=== PATIENT | female | born 1990 | race Caucasian/White ===

== ENCOUNTER 2016-12-07 09:27 | Emergency (ER) | payer OTHER ==
[2016-12-07 09:57] LABS: HCG UR QUAL NEGATIVE
--- NOTE | 2016-12-07 10:33 | ED Physician Documentation ---
PD HPI NVD - Stated complaint Stated Complaint: VOMITING/ANXIETY - Chief complaint Chief Complaint: General - History obtained from History obtained from: Patient - History of Present Illness Timing - onset: How many days ago (5) Timing - duration: Days (5) Timing - details: Gradual onset, Still present Associated symptoms: Loss of appetite Contributing factors: Other (stress of divorce in progress) Improved by: Laying still Worsened by: Eating Similar symptoms before: Has not had sx before Recently seen: Not recently seen - Additonal information Additional information: 26y/o female with 3 children is going through a divorce for the past 2 years and about 10 days ago she took a test which was faintly positive and she has repeated this with 2 more + tests and the next day she took tests and they were negative. She has subsequently developed nausea and vomiting and has anxiety. She is getting ready to go to [place] tomorrow to see friends and her divorce is in progress. Review of Systems Constitutional: denies: Fever, Chills Eyes: denies: Decreased vision Ears: denies: Ear pain Nose: denies: Congestion Throat: denies: Sore throat Cardiac: denies: Chest pain / pressure, Palpitations Respiratory: denies: Dyspnea, Cough GI: reports: Nausea, Vomiting. denies: Abdominal Pain : denies: Dysuria, Frequency PD PAST MEDICAL HISTORY - Past Medical History Past Medical History: No - Past Surgical History Past Surgical History: No - Present Medications Home Medications: Ambulatory Orders Medication Instructions Recorded Confirmed Lorazepam [Ativan] 1 mg PO Q6HR PRN #20 tablet 12/07/16 - Allergies Allergies/Adverse Reactions: Allergies Allergy/AdvReac Type Severity Reaction Status Date / Time No Known Drug Allergies Allergy Verified 12/07/16 09:33 - Social History Does the pt smoke?: No Smoking Status: Never smoker Does the pt drink ETOH?: Yes Does the pt have substance abuse?: No - Immunizations Immunizations are current?: Yes PD ED PE NORMAL - Vitals Vital signs reviewed: Yes (tachy and hypertensive) - General General: Alert and oriented X 3, Well developed/nourished - HEENT HEENT: Atraumatic, PERRL, EOMI - Neck Neck: Supple, no meningeal sign - Cardiac Cardiac: RRR, No murmur - Respiratory Respiratory: No respiratory distress, Clear bilaterally - Abdomen Abdomen: Soft, Non tender - Back Back: No CVA TTP, No spinal TTP - Derm Derm: Normal color, Warm and dry, No rash - Extremities Extremities: No deformity, No edema - Neuro Neuro: No motor deficit, No sensory deficit - Psych Psych: Normal mood, Normal affect Results - Vitals Vitals: Vital Signs - 24 hr 12/07/16 12/07/16 09:32 12:46 Temperature 36.0 C L Heart Rate 103 H 79 Respiratory 18 18 Rate Blood Pressure 148/91 H 117/79 O2 Saturation 100 100 Oxygen O2 Source Room air - Labs Labs: Laboratory Tests 12/07/16 12/07/16 12/07/16 09:45 09:45 10:45 HCG, Quant < 0.60 Urine Color YELLOW Urine Clarity CLEAR Urine pH 6.5 Ur Specific [place] 1.015 1.015 Urine Protein NEGATIVE Urine Glucose (UA) NEGATIVE Urine Ketones >=80 H Urine Occult Blood NEGATIVE Urine Nitrite NEGATIVE Urine Bilirubin NEGATIVE Urine Urobilinogen 0.2 (NORMAL) Ur Leukocyte Esterase NEGATIVE Ur Microscopic Review NOT INDICATED Urine Culture Comments NOT INDICATED Urine HCG, Qual NEGATIVE Procedures - IVC sono (time) 1030 Bedside IVC sono: IVC measures (cm) (1.34), IVC collapsed c insp (cm) (complete) , Dehydration (mild) PD MEDICAL DECISION MAKING - ED course Complexity details: reviewed results, re-evaluated patient, considered differential, d/w patient ED course: 26 y/o female with vomiting and ? of . She is not and is under stress. Departure - Departure Disposition: 01 Home, Self Care Clinical Impression: Anxiety as acute reaction to exceptional stress Condition: Stable Instructions: ED Stress React Follow-Up: Your, doctor [Other] Prescriptions: Lorazepam [Ativan] 1 mg PO Q6HR PRN #20 tablet PRN Reason: Anxiety Comments: Today in the Emergency Department your blood pressure was elevated. This can happen from the stress of the visit itself, from a current illness or circumstance or from uncontrolled hypertension. If you take blood pressure medications take your usual mediations, have your blood pressure re-checked in an appropriate setting and follow up any elevation with your primary care doctor.
[2016-12-07 11:23] LABS: BILIRUBIN,URINE NEGATIVE (NEGATIVE); PH,URINE 6.5 PH (5.0-7.5); UA CHARGE (STRIP ONLY) YES; UR CULTURE IF IND NOT INDICATED
[2016-12-07 13:14] VITALS: BP 119/78
== END 2016-12-07 13:13 | disposition home or self-care (01) ==
LOC: ED 09:27
DX: F41.1 Generalized anxiety disorder (principal); F43.0 Acute stress reaction; R11.2 Nausea with vomiting, unspecified; E86.0 Dehydration; R03.0 Elevated blood-pressure reading, without diagnosis of hypertension
CPT/HCPCS: 36415; 81001; 81003; 81025; 84702; 87086; 99283; 99284

== ENCOUNTER 2017-03-10 11:09 | Emergency (ER) | payer OTHER ==
[2017-03-10 11:50] LABS: BILIRUBIN,URINE NEGATIVE (NEGATIVE)
[2017-03-10 12:03] LABS: UA w/ MICROSCOPIC CHARGE YES
[2017-03-10 12:04] LABS: HCG UR QUAL NEGATIVE
[2017-03-10 12:05] LABS: UR CULTURE IF IND NOT INDICATED; WBC,URINE 0-3 /HPF (0-5)
[2017-03-10] MEDS ORDERED: SODIUM CHLORIDE 0.9% 1,000 ML IV ONE (13:00)
[2017-03-10] MEDS ORDERED: KETOROLAC 60 MG/2 ML VIAL IVP STA (13:00)
[2017-03-10] MEDS ORDERED: KETOROLAC 30 MG/ML VIAL ONE (13:18)
[2017-03-10 13:26] LABS: BASOPHILS # (AUTO) 0.1 10^3/uL (0.0-0.1); BASOPHILS % (AUTO) 0.8 %; EOSINOPHILS % (AUTO) 0.5 %; HCT - HEMATOCRIT 36.8 % (37.0-47.0); HGB - HEMOGLOBIN 12.3 g/dL (12.0-16.0); LYMPHOCYTES # (AUTO) 1.7 10^3/uL (1.5-3.5); LYMPHOCYTES % (AUTO) 25.2 %; MEAN CORPUSCULAR HEMOGLOBIN 30.8 pg (27.0-31.0); MEAN CORPUSCULAR HGB CONC 33.5 g/dL (32.0-36.0); MEAN CORPUSCULAR VOLUME 91.8 fL (81.0-99.0); MEAN PLATELET VOLUME 9.2 fL (7.9-10.8); MONOCYTES # (AUTO) 0.4 10^3/uL (0.0-1.0); MONOCYTES % (AUTO) 5.2 %; NEUTROPHILS # (AUTO) 4.6 10^3/uL (1.5-6.6); NEUTROPHILS % (AUTO) 68.3 %; RED BLOOD COUNT 4.01 10^6/uL (4.20-5.40); RED CELL DISTRIBUTION WIDTH 13.5 % (12.0-15.0); UNCORRECTED WHITE BLOOD COUNT 6.7 x10^3/uL; WHITE BLOOD COUNT 6.7 x10^3/uL (4.8-10.8)
--- NOTE | 2017-03-10 14:13 | CT Report ---
EXAM: CT ABDOMEN AND PELVIS EXAM DATE: 03/10/2017 01:48 PM. CLINICAL HISTORY: Right sided abd pain; hematuria. COMPARISONS: None. TECHNIQUE: Routine axial helical CT imaging was performed through the abdomen and pelvis without IV c ontrast. Reconstructions: Coronal and sagittal. In accordance with CT protocol optimization, one or more of the following dose reduction techniques w ere utilized for this exam: automated exposure control, adjustment of mA and/or KV based on patient s ize, or use of iterative reconstructive technique. FINDINGS: Lung Bases: Clear. Bilateral breast prosthesis partially seen. Right Kidney/Ureter: Minor hydronephrosis. A 3 x 5 mm stone is seen in close proximity to the posteri or margin of the proximal ureter. Mild urothelial thickening. No intrarenal calculus. Minimal perinep hric fat stranding. No perinephric fluid. Left Kidney/Ureter: No stones, hydronephrosis, or hydroureter. No focal renal lesion identified. Other Abdominal Organs: Unremarkable survey of the unenhanced liver, spleen, pancreas, and adrenal gl ands. Grossly unremarkable gallbladder without calcified gallstone. Peritoneal Cavity: Trace dependent pelvic free fluid. No dilated bowel. Appendix is not well depicted . Pelvic Organs: No apparent abnormality of the suboptimally distended bladder. Grossly unremarkable GY N organs Vasculature: No abdominal aortic aneurysm. Bones: No significant findings. IMPRESSION: 1. A 3 x 5 mm stone is in close proximity to the posterior proximal right ureter, uncertain if within or adjacent to the ureter. 2. Minor right hydronephrosis. 3. Mild right urothelial thickening, presumably inflammatory/infectious. No intrarenal calculus or pe rinephric fluid. [facility] Referring Provider Line: [phone] SITE ID: [id number]
--- NOTE | 2017-03-10 14:57 | ED Physician Documentation ---
PD HPI ABD PAIN - Stated complaint Stated Complaint: ABD PX - Chief complaint Chief Complaint: Abd Pain - History obtained from History obtained from: Patient - History of Present Illness Timing - onset: Last night Timing - details: Still present Quality: Sharp Location: Other (right sided) Radiation: Right flank Associated symptoms: Nausea. No: Fever, Vomiting Similar symptoms before: Diagnosis (History of kidney stones.) - Additional information Additional information: The patient is a 26-year-old female with history of kidney stones, who presents with right sided abdominal pain radiating to the right flank. She reports dull right-sided abdominal pain intermittently for the past 4 months, but she developed sharp severe pain last night, lasting for about 2 hours. It is now back to a dull pain again. She reports associated nausea, but denies vomiting. She denies fever or diarrhea, and denies dysuria. Her last menstrual period was 3 weeks ago. She has had no abdominal surgery. Review of Systems Constitutional: denies: Fever Nose: denies: Congestion Throat: denies: Sore throat Respiratory: denies: Dyspnea, Cough GI: reports: Abdominal Pain, Nausea. denies: Vomiting, Diarrhea : denies: Dysuria Skin: denies: Rash Musculoskeletal: reports: Back pain (right flank). denies: Extremity pain Neurologic: reports: Headache. denies: Focal weakness, Numbness PD PAST MEDICAL HISTORY - Past Medical History Past Medical History: Yes Endocrine/Autoimmune: None : Kidney stones - Past Surgical History Past Surgical History: Yes - Present Medications Home Medications: Ambulatory Orders Medication Instructions Recorded Confirmed Lorazepam [Ativan] 1 mg PO Q6HR PRN #20 tablet 12/07/16 Promethazine [Phenergan] 25 - 50 mg PO Q6H PRN #10 tab 03/10/17 Tamsulosin [Flomax] 0.4 mg PO DAILY #5 capsule 03/10/17 oxyCODONE/ACET 5/325 [Percocet 5 1 tab PO Q4-6H PRN #20 tablet 03/10/17 mg/325 mg] - Allergies Allergies/Adverse Reactions: Allergies Allergy/AdvReac Type Severity Reaction Status Date / Time No Known Drug Allergies Allergy Verified 12/07/16 09:33 - Social History Does the pt smoke?: No Smoking Status: Never smoker Does the pt drink ETOH?: Yes Does the pt have substance abuse?: No - Immunizations Immunizations are current?: Yes PD ED PE NORMAL - Vitals Vital signs reviewed: Yes (mild hypertension initially.) - General General: Alert and oriented X 3, Well developed/nourished - HEENT HEENT: Atraumatic - Cardiac Cardiac: RRR, No murmur - Respiratory Respiratory: No respiratory distress, Clear bilaterally - Abdomen Abdomen: Normal bowel sounds, Soft, No organomegaly, Other (Mild right mid abdominal tenderness to palpation. No rebound or guarding.) - Back Back: No CVA TTP - Derm Derm: No rash - Extremities Extremities: No edema, No calf tenderness / cord - Neuro Neuro: Alert and oriented X 3, No motor deficit, Normal speech Results - Vitals Vitals: Oxygen O2 Source Room air - Labs Labs: Laboratory Tests 03/10/17 03/10/17 11:30 13:09 WBC 6.7 RBC 4.01 L Hgb 12.3 Hct 36.8 L MCV 91.8 MCH 30.8 MCHC 33.5 RDW 13.5 Plt Count 208 MPV 9.2 Neut # 4.6 Lymph # 1.7 [place] # 0.4 Eos # 0.0 Baso # 0.1 Absolute Nucleated RBC 0.00 Nucleated RBCs 0.0 Urine Color YELLOW Urine Clarity CLEAR Urine pH 7.0 Ur Specific [place] 1.020 Urine Protein NEGATIVE Urine Glucose (UA) NEGATIVE Urine Ketones NEGATIVE Urine Occult Blood SMALL H Urine Nitrite NEGATIVE Urine Bilirubin NEGATIVE Urine Urobilinogen 0.2 (NORMAL) Ur Leukocyte Esterase NEGATIVE Urine RBC 6-10 H Urine WBC 0-3 Ur Squamous Epith Cells MOD Squamous H Amorphous Sediment Moderate Urine Bacteria Few Ur Microscopic Review INDICATED Urine Culture Comments NOT INDICATED Urine HCG, Qual NEGATIVE - Rads (name of study) CT abd/pelvis w/o Radiology: Prelim report reviewed, EMP read contemporaneously, See rad report ( 1. A 3 x 5 mm stone is in close proximity to the posterior proximal right ureter, uncertain if within or adjacent to the ureter.) PD MEDICAL DECISION MAKING - ED course Complexity details: reviewed old records, reviewed results, re-evaluated patient , considered differential, d/w patient ED course: The patient's presentation is consistent with renal colic with right ureteral stone visualized on CT scan. Her presentation does not suggest pyelonephritis or appendicitis. Treatment in the emergency department included administration of normal saline 1 L IV, ketorolac 30 mg IV, ondansetron 4 mg IV, and hydromorphone 1 mg IV. The patient's symptoms improved with the above treatment. I discussed with her the results of the CT scan, symptomatic treatment and outpatient follow-up, as well as potentially worrisome signs or symptoms that should prompt reevaluation in the emergency department. She is being discharged with prescriptions for Flomax, Phenergan, and Percocet. Departure - Departure Disposition: 01 Home, Self Care Clinical Impression: Renal colic, Right ureteral calculus Condition: Stable Instructions: ED Stone Renal W Colic Follow-Up: [facility] [Provider Group] Prescriptions: Tamsulosin [Flomax] 0.4 mg PO DAILY #5 capsule oxyCODONE/ACET 5/325 [Percocet 5 mg/325 mg] 1 tab PO Q4-6H PRN #20 tablet PRN Reason: Pain Promethazine [Phenergan] 25 - 50 mg PO Q6H PRN #10 tab PRN Reason: Nausea / Vomiting Comments: Drink plenty of fluids. Take ibuprofen, up to 600 mg 3 times daily. You can use Percocet as prescribed if needed for pain. You can use Phenergan as prescribed as needed for nausea. Follow-up with your primary physician within 1 week. Call to schedule appointment. Return to the emergency department if you develop increasing pain, persistent vomiting, fever, or otherwise worsening symptoms. Forms: Activity restrictions Discharge Date/Time: 03/10/17 15:57
[2017-03-10] MEDS ORDERED: HYDROmorphone 1 MG/ML SYRINGE IVP STA (15:01)
[2017-03-10] MEDS ORDERED: ONDANSETRON 4 MG/2 ML VIAL IVP STA (15:01)
[2017-03-10] MEDS ORDERED: HYDROmorphone 1 MG/ML SYRINGE ONE (15:18)
[2017-03-10] MEDS ORDERED: ONDANSETRON 4 MG/2 ML VIAL ONE (15:18)
[2017-03-10] MEDS ORDERED: SODIUM CHLORIDE FLUSH 0.9% 10 ML SYRINGE IVP ONE (15:19)
[2017-03-10 15:57] VITALS: BP 128/61
== END 2017-03-10 15:57 | disposition home or self-care (01) ==
LOC: ED 11:09
DX: N20.1 Calculus of ureter (principal)
CPT/HCPCS: 36415; 74176; 81001; 81025; 85025; 96374; 96375; 99283; 99284; J1170; 81003; 87086

== ENCOUNTER 2017-07-12 12:50 | Emergency (ER) | payer OTHER ==
[2017-07-12 13:36] LABS: BILIRUBIN,URINE NEGATIVE (NEGATIVE); CLARITY,URINE CLEAR (CLEAR); GLUCOSE, URINE (UA) NEGATIVE (NEGATIVE); KETONES,URINE (UA) NEGATIVE (NEGATIVE); LEUKOCYTE ESTERASE, URINE NEGATIVE (NEGATIVE); NITRITE,URINE NEGATIVE (NEGATIVE); OCCULT BLOOD,URINE TRACE-INTA (NEGATIVE); PH,URINE 6.5 PH (5.0-7.5); PROTEIN,URINE NEGATIVE (NEGATIVE); UROBILINOGEN,URINE 0.2 (NORMAL) E.U./dL (NORMAL)
--- NOTE | 2017-07-12 14:08 | ED Physician Documentation ---
PD HPI ABD PAIN - Stated complaint Stated Complaint: ABD PX - Chief complaint Chief Complaint: Abd Pain - History obtained from History obtained from: Patient - History of Present Illness Timing - onset: How many days ago (3) Timing - duration: Days (3) Timing - details: Gradual onset Pain level max: 6 Pain level now: 6 Quality: Aching, Pain Location: RLQ Radiation: Other (non-radiating) Improved by: Laying still Worsened by: Moving, Palpation Associated symptoms: No: Fever, Nausea, Vomiting, Hematemesis, Diarrhea, Constipation, Melena, Hematochezia, Dysuria, Hematuria Similar symptoms before: Diagnosis (kidney stones) Recently seen: Not recently seen - Additional information Additional information: Patient is a 26-year-old female who presents to the emergency department with right-sided abdominal pain. She states that she has a history of kidney stones , but they normally feel higher on her flank. She is concerned that she had a kidney stone recently that may not of passed. No fevers. Review of Systems Constitutional: denies: Fever, Chills Nose: denies: Rhinorrhea / runny nose, Congestion Throat: denies: Sore throat Cardiac: denies: Chest pain / pressure Respiratory: denies: Cough : denies: Dysuria, Frequency, Hesitancy Skin: denies: Rash Musculoskeletal: denies: Neck pain, Back pain Neurologic: denies: Headache PD PAST MEDICAL HISTORY - Past Medical History Past Medical History: Yes Endocrine/Autoimmune: None : Kidney stones - Past Surgical History Past Surgical History: Yes - Present Medications Home Medications: Ambulatory Orders Medication Instructions Recorded Confirmed Lorazepam [Ativan] 1 mg PO Q6HR PRN #20 tablet 12/07/16 07/12/17 Promethazine [Phenergan] 25 - 50 mg PO Q6H PRN #10 tab 03/10/17 07/12/17 Tamsulosin [Flomax] 0.4 mg PO DAILY #5 capsule 03/10/17 07/12/17 oxyCODONE/ACET 5/325 [Percocet 5 1 tab PO Q4-6H PRN #20 tablet 03/10/17 07/12/17 mg/325 mg] Hydrocodone/Acetaminophen 1 - 2 each PO Q6H PRN #10 tablet 07/12/17 [Hydrocodon-Acetaminophen 5-325] - Allergies Allergies/Adverse Reactions: Allergies Allergy/AdvReac Type Severity Reaction Status Date / Time No Known Drug Allergies Allergy Verified 12/07/16 09:33 - Social History Does the pt smoke?: No Smoking Status: Never smoker Does the pt drink ETOH?: Yes Does the pt have substance abuse?: No - Immunizations Immunizations are current?: Yes - POLST Patient has POLST: No PD ED PE NORMAL - Vitals Vital signs reviewed: Yes - General General: Alert and oriented X 3, No acute distress, Well developed/nourished - HEENT HEENT: Moist mucous membranes - Neck Neck: Supple, no meningeal sign - Cardiac Cardiac: RRR, Strong equal pulses - Respiratory Respiratory: No respiratory distress, Clear bilaterally - Abdomen Abdomen: Soft, Non distended, Other (TTP RLQ at [place]cbur[place] point. no peritoneal signs. ) - Back Back: No CVA TTP, No spinal TTP - Derm Derm: Warm and dry, No rash - Neuro Neuro: Alert and oriented X 3 - Psych Psych: Normal mood, Normal affect Results - Vitals Vitals: Vital Signs - 24 hr 07/12/17 07/12/17 13:09 17:09 Temperature 36.9 C Heart Rate 69 65 Respiratory 16 15 Rate Blood Pressure 137/70 H 116/68 O2 Saturation 100 100 Oxygen O2 Source Room air - Labs Labs: Laboratory Tests 07/12/17 07/12/17 07/12/17 13:25 14:05 14:05 WBC 8.0 RBC 4.29 Hgb 13.4 Hct 39.4 MCV 91.9 MCH 31.2 H MCHC 33.9 RDW 12.6 Plt Count 214 MPV 8.4 Neut # 5.6 Lymph # 1.8 [place] # 0.5 Eos # 0.0 Baso # 0.0 Absolute Nucleated RBC 0.00 Nucleated RBC % 0.0 Sodium 139 Potassium 3.4 L Chloride 108 Carbon Dioxide 27 Anion Gap 4.0 L BUN 12 Creatinine 0.8 Estimated GFR (MDRD) 85 L Glucose 100 Calcium 8.8 Total Bilirubin 0.7 AST 18 ALT 14 Alkaline Phosphatase 28 L Total Protein 7.4 Albumin 4.5 Globulin 2.9 Albumin/Globulin Ratio 1.6 Lipase 27 Urine Color YELLOW Urine Clarity CLEAR Urine pH 6.5 Ur Specific [place] <=1.005 Urine Protein NEGATIVE Urine Glucose (UA) NEGATIVE Urine Ketones NEGATIVE Urine Occult Blood TRACE-INTA Urine Nitrite NEGATIVE Urine Bilirubin NEGATIVE Urine Urobilinogen 0.2 (NORMAL) Ur Leukocyte Esterase NEGATIVE Ur Microscopic Review NOT INDICATED Urine Culture Comments NOT INDICATED Urine HCG, Qual 07/12/17 16:33 WBC RBC Hgb Hct MCV MCH MCHC RDW Plt Count MPV Neut # Lymph # [place] # Eos # Baso # Absolute Nucleated RBC Nucleated RBC % Sodium Potassium Chloride Carbon Dioxide Anion Gap BUN Creatinine Estimated GFR (MDRD) Glucose Calcium Total Bilirubin AST ALT Alkaline Phosphatase Total Protein Albumin Globulin Albumin/Globulin Ratio Lipase Urine Color Urine Clarity Urine pH Ur Specific [place] 1.010 Urine Protein Urine Glucose (UA) Urine Ketones Urine Occult Blood Urine Nitrite Urine Bilirubin Urine Urobilinogen Ur Leukocyte Esterase Ur Microscopic Review Urine Culture Comments Urine HCG, Qual NEGATIVE - Rads (name of study) ct abd/pelvis Radiology: Prelim report reviewed, EMP read contemporaneously, See rad report ( Right nephrolithiasis without recurrent obstructive uropathy. Normal appendix. No radiographic explanation for this young lady's presenting symptoms. ) PD MEDICAL DECISION MAKING - ED course Complexity details: reviewed results, re-evaluated patient, considered differential, d/w patient ED course: Patient is a 26-year-old female presents to the emergency department with right- sided abdominal pain. Unclear etiology. Does have right nephrolithiasis, but is not causing any obstructive uropathy. Normal appendix. Will prescribe a small amount of pain medication for home and see how she progresses. She will follow-up with urology for further evaluation and care. Tolerating p.o. without difficulty here. Abdomen is soft, mildly tender still on the right side on serial examination. No peritoneal signs. Patient counseled regarding signs and symptoms for which I believe and urgent re-evaluation would be necessary. Patient with good understanding of and agreement to plan and is comfortable going home at this time This document was made in part using voice recognition software. While efforts are made to proofread this document, sound alike and grammatical errors may occur. Departure - Departure Disposition: 01 Home, Self Care Clinical Impression: Abdominal pain Qualifiers: Abdominal location: right lower quadrant Qualified Code(s): R10.31 - Right lower quadrant pain Condition: Good Instructions: ED Abdominal Pain Unkn Cause Follow-Up: your,doctor in 1 week [Other] [facility] [Provider Group] Prescriptions: Hydrocodone/Acetaminophen [Hydrocodon-Acetaminophen 5-325] 1 - 2 each PO Q6H PRN #10 tablet PRN Reason: pain Comments: Return if you worsen. Drink plenty of fluids. You do still have a kidney stone and you may want to follow-up with urology to see about removing this. Do not drink alcohol or drive while on narcotic pain medicine. Note that many narcotic pain relievers also contain tylenol/acetaminophen. Please ensure that your total dose of acetaminophen from all sources does not exceed 3 grams (3000mg) per day. You may constipated on this medication, take a stool softener such as "Colace" twice a day while you are on it. Also recommend a aydo-kav-fezzrgn laxative such as senna or MiraLAX any day that you do not have a bowel movement. If you received narcotic pain medication in the emergency department, do not drive or operate machinery for the next 24 hours. Discharge Date/Time: 07/12/17 17:20
[2017-07-12 14:11] LABS: BASOPHILS % (AUTO) 0.6 %; EOSINOPHILS % (AUTO) 0.4 %; HGB - HEMOGLOBIN 13.4 g/dL (12.0-16.0); LYMPHOCYTES # (AUTO) 1.8 10^3/uL (1.5-3.5); LYMPHOCYTES % (AUTO) 22.5 %; MEAN CORPUSCULAR HEMOGLOBIN 31.2 pg (27.0-31.0); MEAN CORPUSCULAR HGB CONC 33.9 g/dL (32.0-36.0); MEAN CORPUSCULAR VOLUME 91.9 fL (81.0-99.0); MEAN PLATELET VOLUME 8.4 fL (7.9-10.8); MONOCYTES # (AUTO) 0.5 10^3/uL (0.0-1.0); MONOCYTES % (AUTO) 5.8 %; NEUTROPHILS # (AUTO) 5.6 10^3/uL (1.5-6.6); NEUTROPHILS % (AUTO) 70.7 %; PLT - PLATELET COUNT 214 10^3/uL (130-450); RED BLOOD COUNT 4.29 10^6/uL (4.20-5.40); RED CELL DISTRIBUTION WIDTH 12.6 % (12.0-15.0)
[2017-07-12 14:23] LABS: ALBUMIN 4.5 g/dL (3.2-5.5); ALBUMIN/GLOBULIN RATIO 1.6 (1.0-2.2); BILIRUBIN,TOTAL 0.7 mg/dL (0.2-1.0); CALCIUM 8.8 mg/dL (8.5-10.3); CREATININE 0.8 mg/dL (0.4-1.0); TOTAL PROTEIN 7.4 g/dL (6.7-8.2)
[2017-07-12] MEDS ORDERED: IOPAMIDOL-300 100 ML VIAL ONE (15:37)
[2017-07-12] MEDS ORDERED: IOPAMIDOL-300 100 ML VIAL IVP ONE (16:12)
[2017-07-12 16:39] LABS: HCG UR QUAL NEGATIVE
--- NOTE | 2017-07-12 16:51 | CT Preliminary Report ---
Exam: CT ABDOMEN/PELVIS W/ IMPRESSION: 1. Right nephrolithiasis without recurrent obstructive uropathy. 2. Normal appendix. 3. No radiographic explanation for this young lady's presenting symptoms. [facility] SITE ID: [id number]
--- NOTE | 2017-07-12 17:00 | CT Report ---
EXAM: CT ABDOMEN AND PELVIS WITH CONTRAST EXAM DATE: 07/12/2017 03:46 PM. CLINICAL HISTORY: History of nephrolithiasis. Right lower quadrant abdominal pain and nausea for 6 da ys. COMPARISONS: 03/10/2017. TECHNIQUE: Routine helical CT imaging was performed through the abdomen and pelvis. IV contrast: 100 mL Isovue 300. Enteric contrast: No. Reconstructions: Coronal and sagittal. In accordance with CT protocol optimization, one or more of the following dose reduction techniques w ere utilized for this exam: automated exposure control, adjustment of mA and/or KV based on patient s ize, or use of iterative reconstructive technique. FINDINGS: Lung Bases: Bilateral breast prostheses. Liver: Normal. No masses. Gallbladder/Bile Ducts: Unremarkable. Spleen: Normal. Pancreas: Normal. Adrenal Glands: Normal. Kidneys: Normal left kidney. Interval resolution of the mild right hydronephrosis. There has been interval change in position of t he 3 x 5 mm stone, previously at the ureteropelvic junction; now it is within an inferior right renal calyx. No right renal mass lesions. Both ureters are small without calcified stones. Peritoneal Cavity/Bowel: Normal. No free fluid, free air or adenopathy. No masses or acute inflammato ry process. The appendix is well visualized and normal. Pelvic Organs: Normal. The bladder and visualized pelvic organs are within normal limits. Vasculature: No aneurysms or other significant abnormality. Bones: No significant abnormality. Other: None. IMPRESSION: 1. Right nephrolithiasis without recurrent obstructive uropathy. 2. Normal appendix. 3. No radiographic explanation for this young lady's presenting symptoms. [facility] Referring Provider Line: [phone] SITE ID: [id number]
[2017-07-12 17:10] VITALS: BP 116/68
== END 2017-07-12 17:20 | disposition home or self-care (01) ==
LOC: ED 12:50
DX: R10.31 Right lower quadrant pain (principal); N20.0 Calculus of kidney
CPT/HCPCS: 36415; 74177; 80053; 81003; 81025; 83690; 85025; 99283; Q9967; 81001; 87086